=== PATIENT | male | born 1965 | race African-American/Black ===

== ENCOUNTER 2018-08-09 17:48 | Emergency (ER) | payer MEDICAID ==
[~2018-08-09] VITALS: Ht 182.9 cm; Wt 90.7 kg
--- NOTE | 2018-08-09 18:34 | NUR ---
patient presented to the ER c/o chest pain from socal VN. on room air, breathing evenly and unlabored. connected to the monitor and pulse ox. Kept comfortable, will continue to montior accordingly.
[2018-08-09 18:44] LABS: BASOPHILS % (AUTO) 0.4 % (0.0-2.0); EOSINOPHILS % (AUTO) 1.5 % (0.0-6.0); HEMATOCRIT 43 % (39-51); HEMOGLOBIN 14.2 g/dL (13.5-17.5); LYMPHOCYTES # (AUTO) 1.6 /CMM (0.8-4.8); LYMPHOCYTES % (AUTO) 24.1 % (20.0-44.0); MEAN CORPUSCULAR HGB CONC 33 g/dl (31.0-36.0); MEAN CORPUSCULAR VOLUME 83 fL (80-96); MONOCYTES # (AUTO) 0.4 /CMM (0.1-1.30); MONOCYTES % (AUTO) 5.4 % (2.0-12.0); NEUTROPHILS # (AUTO) 4.7 /CMM (1.8-8.9); NEUTROPHILS % (AUTO) 68.6 % (43.0-81.0); PLATELET COUNT (AUTO) 203 /CMM (150-450); RED BLOOD CELL COUNT(AUTO) 5.21 MIL/uL (4.5-6.0); WHITE BLOOD COUNT (AUTO) 6.8 K/uL (4.3-11.0)
[2018-08-09 18:50] LABS: CARBON DIOXIDE 26 mmol/L (21-32); CHLORIDE 104 mmol/L (98-107); GLUCOSE 87 mg/dL (74-106); SODIUM SERUM 138 mmol/L (136-145); UREA NITROGEN, BLOOD 20 mg/dL (7-18)
[2018-08-09] MEDS ORDERED: IV NS 0.9% 1,000 ML BAG IV ONE (19:00)
--- NOTE | 2018-08-09 19:22 | NUR ---
RECEIVED REPORT FROM MARII METZGER FOR YOMI. PT RESTING IN BED WITH EYES OPEN. NO S/S OF ACUTE DISTRESS NOTED. PT ON CLINICAL MASSAGE THERAPIST AND POX. WILL CONTINUE TO MONITOR PT FOR COMFORT AND SAFETY.
--- NOTE | 2018-08-09 19:25 | NUR ---
PT'S IV FLUSHED WITH 10CC NS TO CHECK FOR PATENCY. IV FLUSHES WELL WITH NO S/S OF INFILTRATE OR PHLEBITIS. PT DENIES PAIN AT IV SITE
--- NOTE | 2018-08-09 19:27 | NUR ---
BEDSIDE WITH PT.
--- NOTE | 2018-08-09 19:34 | NUR ---
PT PLACED ON OXYGEN NC 2L/M.
--- NOTE | 2018-08-09 19:35 | NUR ---
VENOUS DUPLEX TECH BEDSIDE WITH PT
[2018-08-09] MEDS ORDERED: IOHEXOL-350 100 ML VIAL IV ONE (19:40)
--- NOTE | 2018-08-09 20:02 | NUR ---
PT TO CT
[2018-08-09] MEDS ORDERED: HYDROCODONE/APAP 5/325MG 1 EACH TABLET ONE (21:56)
[2018-08-09] MEDS ORDERED: HYDROCODONE/APAP 5/325MG 1 EACH TABLET PO ONE (22:00)
--- NOTE | 2018-08-09 22:19 | NUR ---
Patient discharged to home in stable condition. Written and verbal after care instructions given. Patient verbalizes understanding of instruction.IV removed. Catheter intact and site benign. Pressure and 4x4 applied to site. No bleeding noted. PT ambulated with steady gait noted stating "im going to take the bus and pay for it myself".
[2018-08-09 22:20] VITALS: BP 159/89
== END 2018-08-09 22:21 | disposition home or self-care (01) ==
LOC: ER 17:57
DX: R07.89 Other chest pain (principal); F20.9 Schizophrenia, unspecified; R79.1 Abnormal coagulation profile; Z86.718 Personal history of other venous thrombosis and embolism; Z88.0 Allergy status to penicillin
CPT/HCPCS: 36415; 71045; 71275; 80048; 84484 ×2; 85025; 85378; 93005; 93970; 99284; A4606; J7030; Q9967